=== PATIENT | female | born 1945 | race Caucasian/White ===

== ENCOUNTER 2017-09-04 02:16 | Observation (INO) | payer MEDICARE ==
[2017-09-03 13:54] LABS: INR 0.97
[~2017-09-04] VITALS: Ht 160 cm; Wt 72.6 kg
[2017-09-04] VITALS (15 sets, daily range): BP systolic 102–149; BP diastolic 58–76
[~2017-09-04 02:16] MED LIST: ACET-1966 PO; ACYC800T99 PO; ALBU8.5H IH; CHOL10005 PO; FLUT16SP19 NS; LEVO25TA57 PO; PREG100C44 PO; SPIR25TA76 PO; SUMA100T32 PO; TORS20TA30 PO
[2017-09-04] MEDS ORDERED: DEXAMETHASONE SOD PHOS 10MG/ML ONE (08:06)
[2017-09-04] MEDS ORDERED: LIDOCAINE MPF 1% 5 ML VIAL ONE (08:06)
[2017-09-04] MEDS ORDERED: fentaNYL CITR 100 MCG/2 ML AMP ONE ×2 (08:06→11:51)
[2017-09-04] MEDS ORDERED: PROPOFOL EMUL(*) 10MG/ML 20 ML 20 ML ONE (08:06)
[2017-09-04] MEDS ORDERED: ONDANSETRON 4 MG/2 ML VIAL ONE (08:06)
[2017-09-04] MEDS ORDERED: MIDAZOLAM 2 MG/2 ML VIAL ONE (08:08)
[2017-09-04] MEDS ORDERED: MORPHINE PF 5 MG/10 ML AMP ONE (08:09)
[2017-09-04] MEDS ORDERED: PHENYLEPHRINE 10 MG/1 ML VIAL ONE (08:26)
[2017-09-04] MEDS ORDERED: FAMOTIDINE 20 MG TAB PO ONE (08:50)
[2017-09-04] MEDS ORDERED: cloNIDine EPIDUR INJ 100MCG/ML 40 MCG, ROPIVACAINE 0.5% 20 ML VIAL 25 ML, EPINEPHrine H... INJ ONE (08:50)
[2017-09-04] MEDS ORDERED: NORMOSOL R SOLN(*) 1000 ML BAG 1,000 ML IV PRN ×2 (08:50→12:55)
[2017-09-04] MEDS ORDERED: MIDAZOLAM 2 MG/2 ML VIAL IVP PRN (08:50)
[2017-09-04] MEDS ORDERED: CLINDAMYCIN(*) 900 MG/NS 50 ML 50 ML IVPB ONE (08:50)
[2017-09-04] MEDS ORDERED: LIDOCAINE/SOD BICARB 8.4% SYR ID ONE (08:50)
[2017-09-04] MEDS ORDERED: TRANEXAMIC AC 1000 MG/10ML SDV 1,000 MG in DEXTROSE 5% 50 ML BAG 50 ML IV ONE (08:50)
[2017-09-04] MEDS ORDERED: BUPIVACAINE/EPI 0.5% 50ML VIAL INFIL ONE (09:31)
[2017-09-04] MEDS ORDERED: CLONIDINE INJ ONE (09:45)
[2017-09-04] MEDS ORDERED: ROPIVACAINE 0.2% INJ ONE (09:45)
[2017-09-04] MEDS ORDERED: [UNRECOGNIZED DRUG - OTHER] INJ ONE (09:45)
[2017-09-04] MEDS ORDERED: EPINEPHRINE INJ ONE (09:45)
[2017-09-04] MEDS ORDERED: KETAMINE HCL 200 MG/20 ML MDV ONE (10:00)
[2017-09-04] MEDS ORDERED: ROCURONIUM BROM 10 MG/ML 5 ML ONE (10:00)
[2017-09-04] MEDS ORDERED: PHENYLEPHRINE/NS/PF 0.4MG/10ML ONE (10:01)
[2017-09-04] MEDS ORDERED: ACETAMINOPHEN(*)1000 MG/100 ML 100 ML IVPB ONE (12:11)
[2017-09-04] MEDS ORDERED: PROMETHAZINE 25 MG/ML 1 ML AMP ONE (12:19)
--- NOTE | 2017-09-04 12:38 | RADIOLOGY IMAGING REPORT ---
FACILITY: [facility] PATIENT NAME: Brinda Sky : 1945 MR: [id number] V: [id number] EXAM DATE: ORDERING PHYSICIAN: OLIVER PERRY TECHNOLOGIST: Location: [facility] [place] Patient: Brinda Sky : 1945 Visit/Account:[id number] Date of Sevice: 09/04/2017 Left knee Indication: Pain Comparison: Left total knee arthroplasty Findings: There is osseous alignment status post left total knee arthroplasty. Components align appropriately and are well-seated. Expected soft tissue findings IMPRESSION: 1. Expected postoperative appearance status post left total knee arthroplasty Report Dictated By: Jason Bajwa MD at 09/04/2017 12:33 PM Report E-Signed By: Jason Bajwa MD at 09/04/2017 12:34 PM WSN:[id number]
[2017-09-04] MEDS ORDERED: LACTATED RINGER 3000 ML BAG IR ONE (12:43)
[2017-09-04] MEDS ORDERED: FLUSH 10 ML SYR IVP PRN (12:55)
[2017-09-04] MEDS ORDERED: PROMETHAZINE 25 MG/ML 1 ML AMP IVP PRN (12:55)
[2017-09-04] MEDS ORDERED: MAGNESIUM HYDROXIDE* 30ML UDCP PO PRN (12:55)
[2017-09-04] MEDS ORDERED: BISACODYL 10 MG SUPP PR PRN (12:55)
[2017-09-04] MEDS ORDERED: oxyCODONE HCL 5 MG CAP PO PRN (13:00)
[2017-09-04] MEDS ORDERED: FLUTICASONE PROP 0.05% 16 GM PRN (15:15)
[2017-09-04] MEDS: ACETAMIN/CODEINE #3 300-30 MG PO PRN (15:24)
--- NOTE | 2017-09-04 15:32 | Hospitalist Consultation ---
History of Present Illness Requesting Physician Dr. Mckee Reason for Consult Medication management Chief Complaint s/p left total knee replacement History of Present Illness She was admitted s/p left total knee replacement. She has no history of DVT or PE. She has history of Migraine headaches, Asthma, Chronic Kidney Disease, and hypertension. History Problems: (1) Hypertension Status: Chronic (2) Chronic kidney disease, stage 3 Status: Chronic (3) Asthma Status: Chronic (4) Jose's thyroiditis Status: Chronic (5) Migraine headache Status: Chronic Home Meds Reported Medications Albuterol Sulfate 90 Mcg/Act (PROAIR HFA 90 MCG/ACT) 8.5 Gm Hfa.aer.ad, 2 PUFF IH Q4-6H Y for ALLERGY SYMPTOMS, INHALER 08/28/17 Levothyroxine Sodium (SYNTHROID) 25 Mcg Tablet, 25 MCG PO QHS 08/28/17 Fluticasone Prop 50 Mcg Ns (FLONASE 50 MCG NS) 16 Gm [place].susp, 2 SPRAYS NS QDAY Y for ALLERGY SYMPTOMS, BOT 08/28/17 Sumatriptan Succinate (IMITREX) 100 Mg Tablet, 100 MG PO DAILY Y for MIGRAINE 08/28/17 Acyclovir (ACYCLOVIR) 800 Mg Tablet, 800 MG PO BID Y for SEE COMMENT, #10 TAB 08/28/17 Acetaminophen (TYLENOL) 325 Mg Tablet, 325 MG PO TID Y for PAIN, TAB 08/28/17 Cholecalciferol (Vitamin D3) (VITAMIN D3) 1,000 Unit Tablet, 1000 UNIT PO DAILY , TAB 08/28/17 Torsemide (TORSEMIDE) 20 Mg Tablet, 20 MG PO QAM 08/28/17 Pregabalin (LYRICA) 100 Mg Capsule, 100 MG PO TID, CAPSULE 08/28/17 Spironolactone (ALDACTONE) 25 Mg Tablet, 25 MG PO QDAY 08/28/17 Allergies: Coded Allergies: cefotaxime (Verified Allergy, Severe, THROAT SWELLING, 08/28/17) Opioids - Morphine Analogues (Verified Adverse Reaction, Intermediate, NAUSEA VOMITING/DIZZINESS-PASSES OUT, 08/29/17) gabapentin (Verified Adverse Reaction, Intermediate, HALLUCINATIONS, ) Patient History: Diabetes mellitus FATHER, MOTHER, FH: lung cancer MOTHER, FH: thyroid disease MOTHER, Hx Smoking: No Caffeine Intake: Coffee Caffeine/Cups Per Day: 2-3 CUPS DAILY Hx Alcohol Use: No Hx Substance Use Disorder: No Social Drug Use: Never History of IV Drug Use: No Review of Systems All Systems Reviewed/Normal: Yes, Except as Noted Exam Vital Signs Vital Signs Date Time Temp Pulse Resp B/P (MAP) Pulse Ox O2 Delivery O2 Flow Rate FiO2 09/04/17 14:15 138/73 (94) Nasal Cannula 2.0 09/04/17 13:30 84 98 09/04/17 13:06 12 09/04/17 07:45 97.2 General Appearance: Alert, Awake, No Acute Distress, Afebrile Neuro: No Gross deficits Cardiovascular: Regular Rate and Rhythm Respiratory: No Respiratory Distress, Clear to Auscultation Psych: Alert & Oriented X3, Appropriate Mood & Affect Assessment and Plan Problems: (1) Status post total left knee replacement Status: Acute Assessment & Plan: Followed by Dr. Mckee. She will be on Aspirin 325mg daily for 30 days post-operatively. She has no history of DVT or PE. (2) Hypertension Status: Chronic Assessment & Plan: She is on chronic treatment with Torsemide and Spironolactone. These medications have been restarted with parameters. (3) Chronic kidney disease, stage 3 Status: Chronic Assessment & Plan: She has pre-operative Creatinine at 1.2. We will recheck her BMP tomorrow morning. (4) Jose's thyroiditis Status: Chronic Assessment & Plan: She is on treatment with Levothyroxine. (5) Asthma Status: Chronic Assessment & Plan: She is on chronic treatment with Albuterol inhaler. (6) Migraine headache Status: Chronic Assessment & Plan: She is on chronic treatment with Imitrex as needed for headaches. Venous Thromboembolism Antithrombotics Is Pt On Any Antithrombotics?: No Prophylaxis Tx Contraindicated Pharmacological Contraindicati: Surgical Contraindication JOSE ANTONIO BEE EXTERN Sep 04, 2017 15:32
[2017-09-04] MEDS ORDERED: CLINDAMYCIN 600 MG/4 ML 600 MG in DEXTROSE 5% 50 ML BAG 50 ML IVPB SCH (17:00)
[2017-09-04] MEDS ORDERED: NS(*) 0.9% 500 ML BAG 500 ML ONE (17:10)
[2017-09-04] MEDS: CLINDAMYCIN(*) 600 MG/NS 50 ML 50 ML IVPB SCH (17:13)
[2017-09-04] MEDS: traMADol 50 MG TAB PO PRN ×2 (18:42→19:36)
[2017-09-04] MEDS ORDERED: LEVOTHYROXINE SOD 0.025 MG TAB PO SCH (21:00)
[2017-09-04] MEDS: ACETAMINOPHEN 500 MG TAB PO SCH (21:14)
[2017-09-04] MEDS: PREGABALIN 50 MG CAP PO SCH (21:14)
[2017-09-05] MEDS: CLINDAMYCIN(*) 600 MG/NS 50 ML 50 ML IVPB SCH ×2 (01:37→08:35)
[2017-09-05] MEDS: ACETAMIN/CODEINE #3 300-30 MG PO PRN ×3 (02:30→14:28)
[2017-09-05] MEDS: ACETAMINOPHEN 500 MG TAB PO SCH ×2 (03:42→12:00)
[2017-09-05 05:43] VITALS: BP 107/52
[2017-09-05 07:48] VITALS: BP 104/52
[2017-09-05 08:37] VITALS: Ht 160 cm; Wt 72.6 kg
[2017-09-05] MEDS ORDERED: SPIRONOLACTONE 25 MG TAB PO SCH (09:00)
[2017-09-05] MEDS ORDERED: TORSEMIDE 20 MG TAB PO SCH (09:00)
[2017-09-05] MEDS: PREGABALIN 50 MG CAP PO SCH ×2 (09:00→13:18)
[2017-09-05] MEDS ORDERED: ASPIRIN 325 MG TAB PO SCH (09:00)
--- NOTE | 2017-09-05 09:26 | Hospitalist Progress Note ---
Subjective Progress Notes Subjective She has no complaints this morning. Patient Complains of: Cardiovascular: No: Chest Pain Respiratory: No: Shortness of Breath Physical Exam Vital Signs Date Time Temp Pulse Resp B/P (MAP) Pulse Ox O2 Delivery O2 Flow Rate FiO2 09/05/17 07:48 97.5 71 12 104/52 (69) 95 Room Air 09/05/17 05:43 1.0 Intake and Output 09/06/17 07:00 Intake Total 120 ml Balance 120 ml Intake Oral 120 ml General Appearance: Alert, Awake, No Acute Distress, Afebrile Neuro: No Gross deficits Cardiovascular: Regular Rate and Rhythm Respiratory: No Respiratory Distress, Clear to Auscultation GI: Soft and Non-Tender Psych: Alert & Oriented X3, Appropriate Mood & Affect Result Diagram: 09/05/1752409/05/17524 Assessment and Plan Problems: (1) Status post total left knee replacement Status: Acute Assessment & Plan: Followed by Dr. Mckee. She will be on Aspirin 325mg daily for 30 days post-operatively. She has no history of DVT or PE. (2) Hypertension Status: Chronic Assessment & Plan: She is on chronic treatment with Torsemide and Spironolactone. These medications have been restarted with parameters. (3) Chronic kidney disease, stage 3 Status: Chronic Assessment & Plan: She has pre-operative Creatinine at 1.2. Creatinine this morning was 0.9. (4) Jose's thyroiditis Status: Chronic Assessment & Plan: She is on treatment with Levothyroxine. (5) Asthma Status: Chronic Assessment & Plan: She is on chronic treatment with Albuterol inhaler. (6) Migraine headache Status: Chronic Assessment & Plan: She is on chronic treatment with Imitrex as needed for headaches. Exam Sepsis Risk: No Definite Risk JOSE ANTONIO BEE [employer] Sep 05, 2017 09:26
--- NOTE | 2017-09-05 13:02 | OPERATIVE REPORT 1 ---
EVENT DATE: September 04, 2017 SURGEON: Norbert Mckee MD ANESTHESIOLOGIST: Shady Aguilar MD ANESTHESIA: Left femoral nerve block followed by general. PROCESSING SUPERVISOR: Javier Traore PA-C PREOPERATIVE DIAGNOSIS Left knee degenerative joint disease. POSTOPERATIVE DIAGNOSIS Left knee degenerative joint disease. PROCEDURE Left total knee arthroplasty. IMPLANTS MicroPort medial pivot shift CS system with a 3 femur, 4 tibia, 14 mm CS insert , 8 x 29 mm symmetric patella. We utilized two packages of [employer] cobalt blue cement, 1 gram of tranexamic acid IV 10 minutes prior to start and at the end of the implantation. ZipLine wound closure system, 50 mL of our standard cocktail of ropivacaine but no Toradol. SPECIMENS None. COMPLICATIONS None. ESTIMATED BLOOD LOSS Less than 200 mL. OPERATION Patient received appropriate preoperative antibiotic, was brought to the OR, where Dr. Aguilar performed femoral nerve block followed by general anesthesia. Left thigh tourniquet was placed, left lower extremity prepped and draped in the usual sterile fashion. Midline incision was made, followed by medial parapatellar arthrotomy. We dissected subperiosteally along the medial tibial plateau to the level of the semimembranosus insertion. Fat pad was excised. Patella was released, patella everted. Knee was brought up into flexion. ACL and PCL were released subperiosteally by Bovie. Step cut drill was utilized to broach the femoral canal followed by placement of our intramedullary femoral guide with distal alignment. We set this up at 6 degrees valgus, 10 mm, pinned our block into place. Then, with care taken to protect the soft tissues with retractors, we made our distal cut. The 3 degree external rotation sizing guide was then positioned, referencing off the anterior flange, epicondyles, posterior condyles. Femur was sized to a 3. We drilled our 3 degree external rotation holes. Retractors were placed, the 4-in-1 cutting block placed, cuts made. Tibia was brought anteriorly on the femur with appropriate retractors. Step cut drill was utilized to broach the tibial canal. Intramedullary tibial guide was then positioned, referencing off the least involved lateral tibial plateau. We set the cutting block up at the 10 mm cut, referencing for the rotation, pinned the block into place. Retractors were placed. The tibial cut was made. It should be noted that there was eburnation in the medial compartment, grade 3 changes in the patellofemoral compartment and grade 3 changes in the lateral tibial plateau. The stump of the ACL and PCL and medial and lateral meniscus were removed by Bovie. Leonard elevator was utilized to elevate the posterior capsule. Trial tibial base plate, #4, was then positioned , referencing for previous rotation and utilizing alignment tower. The base plate pinned into place. Starting with 10 mm, eventually moving up to 14 mm, we placed our insert and our femur. We achieved full extension, flexion to 135 degrees, limited only by body habitus. She was stable through varus, valgus stress, and at 90 degrees, we had a satisfactory end point and anterior drawer. Knee was brought in full extension. Patella was size 21 mm. We cut this down 6 with the guide and placed our peg hole guide inferiorly medially, drilled our three peg holes for an 8 x 29 trial, which was then placed. Femoral plug holes were then drilled, pins placed. Cut was made for the trochlear chip. This was placed. Again we had the aforementioned range of motion and stability. Patella tracked well. Patella, femur, tibial insert were removed. Appropriate retractors were placed. We set up our tower. Tibia was then cut, reamed and punched. Instrumentation was removed, plug placed in the distal femur. While we mixed two packages of [place] blue cement, we copiously irrigated by pulse lavage and injected 10 mL of our cocktail without Toradol into the posterior capsule. We then placed the knee in appropriate position, once again irrigating and keeping the bone dry. We then started at the tibia, cemented this into place followed by our 14 mm CS insert, then our # 3 femur. Excess cement was removed. Knee brought out in full extension with axial compression while we cemented the patella. It took 14 minutes for the cement to dry. Again we had the aforementioned range of motion and stability. We copiously irrigated by pulse lavage and injected our remaining 40 mL of ropivacaine into the distal quad mechanism followed by closure of the arthrotomy with #2 Vicryl followed by 2-0 Vicryl for subcutaneous tissues and ZipLine wound closure system for skin. This was placed in 45 degree angle. Dressing was applied, patient extubated and taken to recovery in stable condition. Hospitalist team will be consulted for medical management and anticoagulation, PT and OT for rehab. ZACH
== END 2017-09-05 11:04 | disposition home health service (06) ==
LOC: OR 02:16 → MED 13:00
PROVIDERS: ADMIT Orthopaedic Surgery; ATTEND Orthopaedic Surgery
DX: M17.12 Unilateral primary osteoarthritis, left knee (principal); I12.9 Hypertensive chronic kidney disease with stage 1 through stage 4 chronic kidney disease, or unspecified chronic kidney disease; N18.3 Chronic kidney disease, stage 3 (moderate); D64.9 Anemia, unspecified; R60.9 Edema, unspecified; Z79.899 Other long term (current) drug therapy
CPT/HCPCS: 27447; 36415; 73560; 85014; 85018; 85610; 86850; 86900; 86901; 97116; 97161; 97530; A9270; G0378; J0131; J0171; J0735; J1100; J2001; J2250; J2370; J2405; J2550; J2704; J2795; J3010; J3490; J7040; J7050; J7060; 82310; 82374; 82435; 82565; 82947; 84132; 84295; 84520; J2270